=== PATIENT | male | born 1975 | race Two or more races ===

== ENCOUNTER 2022-07-03 05:16 | Day surgery (SDC) | payer OTHER ==
[~2022-07-03 05:16] MED LIST: ATACAND32 MG PO; LIPITOR40 M1 PO; VERAPAMIL ER120 MG PO; ZETIA10 MG PO
[2022-07-03] MEDS ORDERED: TYLENOL ARTHRI650 MG PO (08:21)
[2022-07-03] MEDS ORDERED: TRAMADOL HCL50 MG PO (08:21)
[2022-07-03] MEDS ORDERED: MIRALAX17 GM PO (08:21)
== END 2022-07-03 13:50 | disposition home or self-care (01) ==
LOC: CIR.AMB 05:16
PROVIDERS: ATTEND Surgery
DX: K81.1 Chronic cholecystitis (principal); K82.8 Other specified diseases of gallbladder; Z88.0 Allergy status to penicillin; Z20.822 Contact with and (suspected) exposure to COVID-19; I10 Essential (primary) hypertension; E78.49 Other hyperlipidemia